=== PATIENT | female | born 2000 | race Caucasian/White ===

== ENCOUNTER 2024-04-13 12:13 | Emergency (ER) | payer OTHER, SELFPAY ==
[2024-04-13 12:16] VITALS: BP 132/88
[2024-04-13 14:22] LABS: HCG, Serum Qualitative Screen Negative
[2024-04-13 14:27] LABS: Blood Urea Nitrogen 11 mg/dl (7-17); Calcium 9.9 mg/dl (8.4-10.2); Carbon Dioxide 20 mmol/L (22-30); Chloride 106 mmol/L (98-107); Glucose 86 mg/dl (70-99); Lipase 59 U/L (23-300); Sodium 140 mmol/L (135-145); eGFR > 60.00
--- NOTE | 2024-04-13 14:27 | ED.GENMED ---
History of Present Illness
General
Chief Complaint: Abdominal Pain
Source: patient
Time Seen by Provider: 04/13/24 13:48
History of Present Illness
History of Present Illness:
23-year-old female with no significant past medical history presenting the emergency department for evaluation of abdominal pain that started approximately 4 5 days ago, initially generalized but more so around the umbilicus, 2 to 3 days ago started
to present more within the right lower quadrant, yesterday pain much more severe which continued this morning prompting her to come to the ER for further evaluation. Patient endorses nausea but no vomiting. No other associated symptoms. She did
take ibuprofen yesterday with no relief. Patient notes that she is due for her menstrual next week. No concern for . No history of ovarian cysts. Denies any surgical history on the abdomen. Social history otherwise noncontributory.
Past History
Past History
ED Past Medical History: None
ED Past Surgical History: None
Social History
Tobacco: Non-smoker
Alcohol: Occasional
Drug: None
Personal: Single
Living: with family
Employment: Employed
Review of Systems
Review of Systems
All Other Systems: ROS reviewed and negative except as documented in HPI and ROS
Phy Exam
Physical Exam
Physical Exam:
GENERAL: Alert , in no apparent distress, overweight
EYE: clear conjunctiva b/l
HEAD: NCAT
ENT: mmm.
ABDOMEN: Soft, significant RLQ ttp, no rebound ttp but patient does guard with palpation of the RLQ, no cvat, negative Zeng sign, tenderness at McBurney's point
NEUROLOGICAL: Alert and oriented
SKIN: Warm and dry, skin intact.
MUSCULOSKELETAL: No edema, well perfused.
PSYCH: Normal and appropriate interaction.
Scores
Heart Failure Risk
Heart Failure Risk Score: Not Applicable
Heart Score for Chest Pain Patients
STEMI patient?: Not applicable
Withdrawal Assessment of Alcohol
Withdrawal Assessment Completed?: Not applicable
Course
Orders/Labs/Results
Orders:
Orders
04/13/24 13:48
Test Result ONCE
04/13/24 13:52
Basic Metabolic Panel Urgent
Complete Blood Count/With Diff Urgent
HCG, Serum Qualitative Screen Urgent
Lipase Urgent
04/13/24 14:07
CT Abd/pelvis W Iv Cont Urgent
Comment:
Reason For Exam: RLQ pain
04/13/24 14:33
Ketorolac [Toradol] 30 mg IV NOW STA
04/13/24 15:00
Urinalysis Reflex To Culture Urgent
Date Specimen was Collected: 04/13/24
Time Specimen was Collected: 12:22
Urine Microscopic Reflex Cult Urgent
Urine Culture Urgent
JOSE A Source: U
Specimen Description:
Date Specimen was Collected: 04/13/24
Time Specimen was Collected: 12:22
Abnormal Lab Results
04/13/24 04/13/24
13:52 15:00
Hct 36.7 L %
(37.0-47.0)
MPV 12.3 H fL
(7.4-10.4)
Carbon Dioxide 20 L mmol/L
(22-30)
Creatinine 0.4 L mg/dL
(0.6-1.0)
Leukocyte Esterase Rfl Trace A
(Negative)
Urine WBC (Reflex) >100 A /HPF
(0-5)
Urine Bacteria (Reflex) Many A
(Negative)
04/13/24 13:52
04/13/24 13:52
Vital Signs
Initial and Last Documented VS:
Initial Vital Signs
Temp Pulse Resp BP Pulse Ox
97.6 F 82 18 132/88 100
04/13/24 12:16 04/13/24 12:16 04/13/24 12:16 04/13/24 12:16 04/13/24 12:16
Last Documented Vital Signs
Temp Pulse Resp BP Pulse Ox
97.6 F 78 18 138/74 98
04/13/24 12:16 04/13/24 18:08 04/13/24 18:08 04/13/24 18:08 04/13/24 18:08
MDM/Problems Addressed
Differential Diagnosis Includes:
appendicitis, ovarian cyst, renal/ureteral colic
MDM/Problems Addressed:
23-year-old female presenting to the emergency department for evaluation of abdominal pain that started earlier in the week, initially generalized, now located within the right lower quadrant. Significant tenderness to palpation on exam and patient
does appear quite uncomfortable. Based off of history I am most suspicious for acute appendicitis is the most likely diagnosis. Will check labs including hCG. CT of the abdomen and pelvis ordered. Toradol for pain ordered. Reassessment
following.
*Radiology
Radiology exam reviewed: radiology read reviewed
*Pulse Oximetry
Patient hypoxic: no
*Critical Care Note
Total Time (30-74mins, 75-104mins- exclusive of procedures): Not Applicable
Patient Management
Escalation/DeEscalation of care consider admission/obs:
Patient's CAT scan shows enlarged lymph nodes within the right lower quadrant suspicious for mesenteric adenitis. There is also 2-1/2 cm right ovarian cyst. I suspect patient's mesenteric adenitis is what is the likely cause for her symptoms.
There is a right ovarian cyst however symptoms do not seem to be consistent with ovarian torsion. Appendix appears normal. Patient's pain is well-controlled, afebrile and no leukocytosis. Stable for discharge home. Motrin/Tylenol and heating pad
advised for pain as needed. Aware of return precautions.
ED Attending Note
-
Portions of this chart may have been created with voice recognition software.� Occasional wrong word or��sound alike� substitutions may have occurred due to the inherent limitations of voice recognition software.
Discharge Plan
Departure
Patient Disposition: Home (Routine Discharge)
Date of Disposition: 04/13/24
Time of Disposition: 17:52
Patient with high blood pressure during this ER visit?: Yes
Discharge Problem:
Mesenteric adenitis, UTI (urinary tract infection)
Instructions: Mesenteric Lymphadenitis (DC)
Prescriptions:
New
amoxicillin-pot clavulanate 875-125 mg tablet
1 tab PO BID 10 Days Qty: 20 0RF
Referrals:
NONE,* [Family Provider] -
Interventions
Interventions:
*Risk Screen - Suicide Last Done: 04/13/24 12:17
*General Assessment Last Done: 04/13/24 12:17
*Neglect/Abuse Screening Last Done: 04/13/24 12:17
ED- Fall Risk Assessment Last Done: 04/13/24 14:00
*ED COVID-19 Vaccine History Last Done: 04/13/24 15:39
*Nursing Disposition Last Done: 04/13/24 18:09
FI-Uxzwep-Ikvyvkdbtg Assessment Last Done: 04/13/24 14:00
Discharge Date and Time
Discharge Date/Time: 04/13/24 18:09
Print Language: KOREAN
[2024-04-13] MEDS: TORADOL 30 MG IV (14:48)
[2024-04-13 15:13] LABS: Urine Albumin Negative (Neg - Trace); Urine Bilirubin Negative (Negative); Urine Character Clear (Clear); Urine Color Yellow; Urine Glucose Negative (Negative); Urine Ketone Negative (Negative); Urine Leukocyte Trace (Negative); Urine Nitrite Negative (Negative); Urine Occult Blood Negative (Negative); Urine Urobilinogen Negative (Neg - 1+)
[2024-04-13 15:16] LABS: Urine Bacteria Many (Negative); Urine Red Blood Cell 0-2 /HPF (0-2); Urine White Cell >100 /HPF (0-5)
[2024-04-13 15:39] VITALS: BP 136/98
[2024-04-13 15:47] LABS: % Basophils 1.1 % (0-2); % Eosinophils 2.9 % (0-6); % Immature Granulocytes 0.1 % (0-0.5); % Lymphocytes 31.2 % (20.5-51.1); % Neutrophils 58.7 % (42.2-75.2); Absolute Basophils 0.1 10^3/uL (0-0.2); Absolute Eosinophils 0.2 10^3/uL (0-0.7); Absolute Lymphocytes 2.3 10^3/uL (1.2-3.4); Absolute Monocytes 0.4 10^3/uL (0.1-0.6); Absolute Neutrophils 4.3 10^3/uL (1.4-6.5); Hematocrit 36.7 % (37.0-47.0); Hemoglobin 12.9 g/dL (12.0-16.0); Mean Corp Hgb Conc. 35.1 g/dL (33.0-37.0); Mean Corpuscular Hgb 29.6 pg (27.0-31.0); Mean Corpuscular Volume 84.2 fL (81.0-99.0); Mean Platelet Volume 12.3 fL (7.4-10.4); Nucleated Red Blood Cells % 0 %; Platelet Count 288 10^3/uL (130-400); Red Blood Cell Count 4.36 10^6/uL (4.20-5.40); Red Cell Dist. Width 13.6 % (11.5-14.5); White Blood Cell Count 7.3 10^3/uL (4.8-10.8)
[2024-04-13 18:08] VITALS: BP 138/74
== END 2024-04-13 18:09 | disposition home or self-care (01) ==
LOC: EMR 12:13
PROVIDERS: Physician Assistant Medical; EMERGENCY PHYSICIAN Emergency Medicine
DX: I88.0 Nonspecific mesenteric lymphadenitis (principal); N39.0 Urinary tract infection, site not specified
CPT/HCPCS: 99284; 96374; 74177; 80048; 81003; 81015; 83690; 84703; 85025; 87086; Q9967